=== PATIENT | female | born 1945 | race Caucasian/White ===

== ENCOUNTER 2016-10-27 09:56 | Emergency (ER) | payer MEDICARE, OTHER ==
[~2016-10-27] VITALS: Ht 165.1 cm; Wt 59.4 kg
[~2016-10-27 09:56] MED LIST: ASPI81TA82 PO; CLOP75 PO; D31000CA PO; LANO0.2510 PO; LEXA10TA PO; PRAM0.12 PO; TOPR25TA2 PO
[2016-10-27 10:03] VITALS: BP 147/97; PULSE 79; RESP 16; TEMP 98; O2SAT 96
[2016-10-27] MEDS ORDERED: KETOROLAC TROMETHAMINE 60 MG/2 ML (IM) VIAL IM ONE (10:30)
[2016-10-27] MEDS ORDERED: MIRA0.25 PO (10:37)
[2016-10-27] MEDS ORDERED: LEXA10TA PO (10:37)
[2016-10-27] MEDS ORDERED: PLAV75TA29 PO (10:37)
[2016-10-27] MEDS ORDERED: METO25TA3 PO (10:37)
[2016-10-27] MEDS ORDERED: COZA100T PO (10:37)
[2016-10-27] MEDS ORDERED: ASPI1TAB69 PO (10:37)
[2016-10-27] MEDS ORDERED: HYDR-3516 PO (10:39)
[2016-10-27] MEDS ORDERED: CYCL5TAB PO (10:39)
--- NOTE | 2016-10-27 10:39 | PD ---
HPI Chief Complaint: Musculoskeletal Complaint Time Seen by Provider: 10:18 Travel History International Travel<30 days: No Contact w/Intl Traveler<30days: No Traveled to known affect area: No History of Present Illness HPI Patient presents with complaints of left groin pain. Denies any trauma misstep or fall. On further questioning admits to new and increased activities with shuffleboard and walking. Denies any new chest pain shortness of breath urinary or bowel symptoms. Able bear weight. States that it occasionally gives out and has a dull ache. She is not using a cane. Reports a history of bilateral lower extremity stent placement. PFSH Past Medical History Hx Anticoagulant Therapy: Yes (plavix and asa 81mg) Cancer: No Cardiac Catheterization: Yes Cardiovascular Problems: Yes (htn on meds) High Cholesterol: Yes Diabetes: No Diminished Hearing: No Endocrine: No Glaucoma: No Genitourinary: No Hepatitis: No Hiatal Hernia: No Hypertension: No Musculoskeletal: No Neurologic: No Psychiatric: No Reproductive: Yes Respiratory: Yes (EXSMOKER) Thyroid Disease: No ?: Not Past Surgical History Abdominal Surgery: Yes (partial hysterectomy) AICD: No Body Medical Devices: cardiac stents, stents in lower abd and groins Cardiac Surgery: Yes (BILAT CAROTID ENDARDERECTOMY, STENTS) Cholecystectomy: Yes Coronary Stent: Yes Ear Surgery: No Eye Surgery: Yes (BILAT CATARACTS WITH SHIRAZ IMPLANTS) Hysterectomy: Yes Joint Replacement: No Oral Surgery: Yes (TONSILLECTOMY) Pacemaker: No Other Surgery: Yes Social History Alcohol Use: Yes (daily beer occ wine) Tobacco Use: No (quit 2011) Substance Use: No Allergies-Medications (Allergen,Severity, Reaction): Coded Allergies: No Known Allergies (Verified , 10/27/16) Reported Meds & Prescriptions Reported Meds & Active Scripts Active Reported Pramipexole Dihydrochlori (Pramipexole Dihydrochloride) 0.125 Mg Tab 0.25 Mg PO DAILY Aspir-81 (Aspirin) 81 Mg Tab 81 Mg PO DAILY D3 (Cholecalciferol) 1,000 Unit Cap 1,000 Unit PO DAILY Lexapro (Escitalopram Oxalate) 10 Mg Tab 10 Mg PO DAILY Toprol Xl (Metoprolol Succinate) 25 Mg Tabcr 25 Mg PO HS Plavix (Clopidogrel Bisulfate) 75 Mg Tab 75 Mg PO HS Lanoxin (Digoxin) 0.25 Mg Tab 0.125 Mg PO HS Physical Exam Narrative GENERAL: Well-nourished, well-developed patient. SKIN: Warm and dry. HEAD: Normocephalic. EYES: No scleral icterus. No injection or drainage. NECK: Supple, trachea midline. No JVD or lymphadenopathy. CARDIOVASCULAR: Regular rate and rhythm without murmurs, gallops, or rubs. RESPIRATORY: Breath sounds equal bilaterally. No accessory muscle use. GASTROINTESTINAL: Abdomen soft, non-tender, nondistended. MUSCULOSKELETAL: No cyanosis, or edema. BACK: Nontender without obvious deformity. No CVA tenderness. Examination the left lower extremity reveals no erythema edema or swelling a good femoral pulses palpated a dorsal pedis pulse is located with Doppler. No discomfort with flexion extension of the knee, no discomfort with flexion extension of the hip no pain with adduction or abduction or external rotation Data Data Last Documented VS Vital Signs Date Time Temp Pulse Resp B/P Pulse Ox O2 Delivery O2 Flow Rate FiO2 10/27/16 10:03 98.0 79 16 147/97 96 Orders Ketorolac Inj (Toradol Inj) (10/27/16 10:30) [facility] Medical Decision Making Medical Screen Exam Complete: Yes Emergency Medical Condition: Yes Differential Diagnosis Left groin strain, left posterior arthritis, femoral hernia Narrative Course Assessment and plan discussed with patient and at bedside Diagnosis Primary Impression: Strain of left inguinal muscle Qualified Code: S39.013A - Strain of left inguinal muscle, initial encounter Patient Instructions: General Instructions Additional Instructions: Encouraged nonsteroidal anti-inflammatories, ice after activity, gentle range of motion exercises, follow-up with PCP symptoms do not improve Med/Other Pt SpecificInfo: Prescription(s) given Scripts Cyclobenzaprine (Flexeril)5 Mg Tab5 Mg PO TID PRN (groin strain) #20 TAB Ref 0 Prov:Petros Alex MD 10/27/16 Hydrocodone-Acetaminophen 5-325 mg Tab1 Tab PO Q6H PRN (PAIN) #20 TAB Ref 0 Prov:Petros Alex MD 10/27/16 Disposition: 01 DISCHARGE HOME Condition: Good Petros Alex MD Oct 27, 2016 10:39
== END 2016-10-27 10:59 | disposition home or self-care (01) ==
LOC: PHED 09:56
DX: S39.013A Strain of muscle, fascia and tendon of pelvis, initial encounter (principal); I10 Essential (primary) hypertension; E78.00 Pure hypercholesterolemia, unspecified; Z87.891 Personal history of nicotine dependence
CPT/HCPCS: 96372; 99283; J1885